=== PATIENT | male | born 1970 | race Caucasian/White ===

== ENCOUNTER 2019-09-10 13:55 | Emergency (ER) | payer SELFPAY ==
[~2019-09-10 13:55] MED LIST: Sodium Chloride 0.9% 1,000 ML IV ONE; diphenhydrAMINE 50 MG/ML SDV IVPUSH ONE; methylPREDNISolone Sodium Succinate 125 MG/2 ML SDV IVPUSH STA
[2019-09-10] MEDS ORDERED: EPINEPHrine 1 MG/1 ML Amp IM ONE (14:29)
--- NOTE | 2019-09-10 16:06 | EDM.PDOC ---
ED HPI GENERAL MEDICAL PROBLEM - General Chief Complaint: Bite:Animal, Insect Stated Complaint: multiple bee stings Time Seen by Provider: 09/10/19 14:05 Source of Information: Reports: Patient History Limitations: Reports: No Limitations - History of Present Illness INITIAL COMMENTS - FREE TEXT/NARRATIVE: Jose is a 49 yr old male who is brought into the ED via private vehicle with multiple bee stings. His boss transported Jose to the ED and states was stung many times. 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 Alexi (boss) states he was pretty anxious en route and shaking. Jose does answer questions appropriately but is shaking and having difficulty getting words out. He does admit to being wobbly on his feet when trying to walk into the building. States he feels tingly all over his body. Initial oxygen saturation was low 80's and put on oxygen per nasal canula which did bring oxygen saturation to 100%. Jose is holding his breath at times as well. Denies any history of allergy to bee stings. - Related Data Allergies Allergy/AdvReac Type Severity Reaction Status Date / Time No Known Allergies Allergy Verified 09/10/19 14:15 Home Meds: Home Meds . [No Known Home Meds] 09/10/19 [History] Past Medical History - Past Health History Medical/Surgical History: Denies Medical/Surgical History Social & Family History - Family History Family Medical History: Noncontributory - Tobacco Use Smoking Status *Q: Current Every Day Smoker Years of Tobacco use: 34 Packs/Tins Daily: 1 - Alcohol Use Alcohol Use History: Yes Alcohol Use Frequency: Daily, Socially - Living Situation & Occupation Living situation: Reports: Occupation: Employed ED ROS GENERAL - Review of Systems Review Of Systems: Comprehensive ROS is negative, except as noted in HPI. ED EXAM, ANIMAL BITE - Physical Exam Exam: See Below Exam Limited By: No Limitations General Appearance: Alert, Anxious Eye Exam: Bilateral Eye: Normal Inspection, PERRL Ears: Normal External Exam, Normal Canal, Hearing Grossly Normal, Normal TMs Nose: Normal Inspection, No Blood Throat/Mouth: Normal Inspection, Normal Lips, Normal Gums, Normal Oropharynx, Normal Voice, No Airway Compromise. No: Dysphagia, Inflammation Head: Atraumatic, Normocephalic. No: Facial Swelling Neck: Normal Inspection, Supple. No: Lymphadenopathy (L), Lymphadenopathy (R) Respiratory/Chest: No Respiratory Distress, Lungs Clear, Normal Breath Sounds, No Accessory Muscle Use Cardiovascular: Normal Peripheral Pulses, No Edema, No Murmur, Tachycardia GI/Abdominal: Normal Bowel Sounds, Soft, No Organomegaly, No Distention, No Mass Neurological: Alert, Oriented, Normal Cognition, No Motor/Sensory Deficits. No: Confused, Disoriented Psychiatric: Anxious Skin Exam: Other (urticaria/flushing of skin noted to torso, 7 bee stingers removed to torso, bilateral arms and scalp) Lymphatic: No Adenopathy Course - Vital Signs Last Recorded V/S: Last Vital Signs Temp 98.3 F 09/10/19 15:01 Pulse 110 H 09/10/19 15:01 Resp 20 09/10/19 15:01 BP 114/77 09/10/19 15:01 Pulse Ox 99 09/10/19 15:01 - Orders/Labs/Meds Meds: Medications Discontinued Medications Generic Name Dose Route Start Last Admin Trade Name Adityaq PRN Reason Stop Dose Admin Diphenhydramine HCl 50 mg 09/10/19 13:55 09/10/19 14:05 Benadryl IVPUSH 09/10/19 13:56 50 mg ONETIME ONE Administration Epinephrine HCl 0.3 mg 09/10/19 14:29 09/10/19 14:30 Adrenalin IM 09/10/19 14:30 0.3 mg ONETIME ONE Administration Sodium Chloride 1,000 mls @ 999 mls/hr 09/10/19 13:55 09/10/19 14:05 Normal Saline IV 09/10/19 14:55 999 mls/hr .BOLUS ONE Administration Methylprednisolone Sodium Succinate 125 mg 09/10/19 13:55 09/10/19 14:05 Solu-Medrol IVPUSH 09/10/19 13:56 125 mg NOW STA Administration - Re-Assessments/Exams Free Text/Narrative Re-Assessment/Exam: Upon arrival to ED, Jose was severely anxious. Patient was given 125mg of Solu Medrol, 50mg of Benadryl IV and Normal Saline at 999 ml's/hr. 0.3mg of epinephrine given intramuscularly. Patient was slightly hypotensive upon arrival. Jose gradually improved and currently in satisfactory state. Patient was transferred to the floor in satisfactory condition for extended ER. Will closely monitor for 4 hours and if no further symptoms will look at discharge at that time. Patient in agreement. Departure - Departure Time of Disposition: 18:00 Disposition: Home, Self-Care 01 Clinical Impression: Accidental bee sting - Discharge Information Instructions: Bee, Wasp, or Hornet Sting, Adult Referrals: PCP,None [Primary Care Provider] - Forms: ED Department Discharge Additional Instructions: 1) All stingers removed that were seen via tweezers. If any further stingers are noted, please remove as they can continue to contain venom 2) Refrain from squeezing out stingers as it can cause further injection of venom. 3) Loratadine 10mg daily for the next few days, able to get over the counter. If no further symptoms after 3 days may stop the medication. 4) Prednisone 40mg daily for 5 days 5) EpiPen prescribed with written prescription 6) Watch for any signs of rebound anaphylaxis, if any symptoms arise, advise returning immediately to the closest ER. Sepsis Event Note (ED) - Evaluation Sepsis Screening Result: No Definite Risk - Focused Exam Vital Signs: Vital Signs Temp Pulse Resp BP Pulse Ox 09/10/19 15:01 98.3 F 110 H 20 114/77 99 09/10/19 14:45 104 H 14 130/76 100 09/10/19 14:30 100 21 H 126/81 99 09/10/19 14:15 107 H 20 120/80 100 09/10/19 14:05 111 H 26 H 111/72 100 09/10/19 13:55 96.7 F L 72 26 H 98/65 81 L - Problem List & Annotations (1) Accidental bee sting SNOMED Code(s): 564459811 Code(s): T63.441A - TOXIC EFFECT OF VENOM OF BEES, ACCIDENTAL, INIT Status: Acute Priority: High Current Visit: Yes - Assessment/Plan Plan: Jose has been doing well since being monitored in same day care as extended ER. Vital signs have been stable and no further oxygen is warranted at this time. Urticaria subsided, no further flushing of the skin. States he is overall feeling well and would like to be discharged at this time. Will discharge as he has been monitored for 3.5 hours now. Discharge instructions discussed into detail and hand out will be provided. Prescription for prednisone and an EpiPen hand written. Advised Jose if any rebound symptoms tonight to go directly to the ER. Patient and verbalized understanding.
== END 2019-09-10 18:04 | disposition home or self-care (01) ==
LOC: CC.ED 13:55
DX: T63.441A Toxic effect of venom of bees, accidental (unintentional), initial encounter (principal); F17.210 Nicotine dependence, cigarettes, uncomplicated
CPT/HCPCS: 96372; 96374; 96375; 99282; J0171; J1200; J2930; J7030